=== PATIENT | male | born 1955 | race Caucasian/White ===

== ENCOUNTER 2019-10-14 21:09 | Observation (INO) | payer MEDICARE, BC ==
--- NOTE | 2019-10-14 21:49 | XR ---
EXAMINATION TYPE: XR KUB DATE OF EXAM: 10/14/2019 COMPARISON: NONE HISTORY: Pain TECHNIQUE: One view abdominal series FINDINGS: The osseous structures are intact. The bowel gas pattern is nonspecific. Air-fluid levels are seen. Hypertrophic and degenerative change of the spine. No foreign body that is metallic is identified in the pelvis. Severe arthropathy of the hips. IMPRESSION: 1. Numerous air-fluid levels in a nonspecific pattern correlate for obstruction, ileus or enteritis. 2. No radio metallic foreign body overlying the pelvis. Correlate clinically.
[2019-10-14] MEDS ORDERED: SODIUM CHLORIDE 0.9% 1,000 ML IV STA (22:10)
[2019-10-14 22:16] LABS: Basophils # (A) 0.1 k/uL (0-0.2); Basophils % (A) 0 %; Eosinophils # (A) 0.2 k/uL (0-0.7); Eosinophils % (A) 2 %; HCT 47.8 % (39.0-53.0); HGB 15.7 gm/dL (13.0-17.5); Lymphocytes # (A) 0.8 k/uL (1.0-4.8); Lymphocytes % (A) 6 %; MCH 28.6 pg (25.0-35.0); MCHC 32.9 g/dL (31.0-37.0); Mean Platelet Volume 7.8; Monocytes # (A) 0.6 k/uL (0-1.0); Monocytes % (A) 5 %; Neutrophils # (A) 10.4 k/uL (1.3-7.7); Neutrophils % (A) 86 %; Platelet Count 211 k/uL (150-450); RDW 13.4 % (11.5-15.5); WBC 12.1 k/uL (3.8-10.6)
[2019-10-14 22:25] LABS: ALT 19 U/L (4-49); AST 25 U/L (17-59); African American GFR (CKD) >90 (>60 ml/min/1.73 sqM); Albumin 4.2 g/dL (3.5-5.0); Alkaline Phosphatase 98 U/L (38-126); Anion Gap 9 mmol/L; Blood Urea Nitrogen 17 mg/dL (9-20); Calcium 9.3 mg/dL (8.4-10.2); Carbon Dioxide 27 mmol/L (22-30); Chloride 98 mmol/L (98-107); Glucose 105 mg/dL (74-99); Non-African American GFR(CKD) >90 (>60 ml/min/1.73 sqM); Potassium 3.8 mmol/L (3.5-5.1); Sodium 134 mmol/L (137-145); Total Bilirubin 0.8 mg/dL (0.2-1.3); Total Protein 7.2 g/dL (6.3-8.2)
--- NOTE | 2019-10-14 23:13 | CT ---
EXAMINATION TYPE: CT abdomen pelvis w con DATE OF EXAM: 10/14/2019 COMPARISON: None HISTORY: r/o fb. c/o constipation. CT DLP: 2439 mGycm Automated exposure control for dose reduction was used. CONTRAST: Performed with IV Contrast, patient injected with 100 mL of Isovue 300. Multiple axial sections were obtained from the diaphragm to the floor the pelvis with IV contrast. Very little vascular contrast is seen. Lung bases are clear. There is no pleural effusion. Heart size is normal. There is no pericardial effusion. Stomach is intact. Liver and gallbladder appear normal. There is no pancreatic mass. There is 3 mm calcified multiple granulomas in the spleen. There is no adrenal mass. There is 3 mm calculus posterior right kidney. There is 2 cm cortical cyst interpolar right kidney. There is no hydronephrosis. Ureters are not dilated. There is no retroperito servando adenopathy. Bladder distends smoothly. There is no inguinal hernia. There is no free fluid in the pelvis. There is mild fat stranding around the rectum. There is a spher ical thin wall foreign body at contains air in the rectum. This measures 7.5 cm in diameter. There is some retained fecal material and fluid in the sigmoid colon. There are numerous diverticula in the l eft colon and sigmoid colon. There is no evidence of diverticulitis. There is no mesenteric edema. There is no ascites or free air. There is no evidence of small bowel ob struction. Appendix is not definitely seen. There is no sign of thickened appendix. Lumbar spine is i ntact. Bony pelvis is intact. There are small degenerative cysts in the right acetabulum. There is so me multilevel spinal stenosis due to significant hypertrophic facet arthropathy in the lower lumbar s pine. IMPRESSION: Air-filled spherical foreign body consistent with a rubber ball in the rectum. Sigmoid diverticulosis without diverticulitis. Perirectal mild fat stranding consistent with nonspecific inflammatory process. Nonobstructing small right renal calculus.
[2019-10-15] MEDS ORDERED: HYDROmorphone 0.5 MG/0.5 ML SYRINGE IVP STA (00:05)
[2019-10-15] MEDS ORDERED: MORPHINE SULFATE 4 MG/ML SYRINGE IVP STA (01:10)
[2019-10-15] MEDS ORDERED: DICYCLOMINE 10 MG/ML 2 ML AMP IM STA (01:21)
[2019-10-15] MEDS ORDERED: MORPHINE SULFATE 4 MG/ML SYRINGE IV PRN (01:25)
[2019-10-15] MEDS ORDERED: NALOXONE 0.4 MG/ML 1 ML VIAL IV PRN (01:25)
[2019-10-15] MEDS ORDERED: ONDANSETRON 4 MG/2 ML VIAL IVP PRN (01:25)
--- NOTE | 2019-10-15 01:25 | ED ---
General Adult HPI - General Source: patient, RN notes reviewed Mode of arrival: ambulatory Limitations: no limitations <Anderson Fernandes - Last Filed: 10/15/19 01:16> <Berta Stevenson - Last Filed: 10/16/19 01:24> - General Chief complaint: Abdominal Pain Stated complaint: Constipated Time Seen by Provider: 10/14/19 21:29 - History of Present Illness Initial comments: 64-year-old male presents to the emergency department for a chief complaint of foreign body in rectum. Patient states around 1 or 2 this afternoon he placed a rubber ball in his rectum. Patient states he tried to get it out with his shower hose but was unsuccessful. He states he is having cramping abdominal pain. Denies vomiting.Patient has no other complaints at this time including shortness of breath, chest pain, nausea or vomiting, headache, or visual changes. (Anderson Fernandes) - Related Data Home Medications Medication Instructions Recorded Confirmed No Known Home Medications 10/15/19 10/15/19 Allergies Allergy/AdvReac Type Severity Reaction Status Date / Time No Known Allergies Allergy Verified 10/15/19 08:52 Review of Systems ROS Other: All systems not noted in ROS Statement are negative. <Anderson Fernandes - Last Filed: 10/15/19 01:16> ROS Other: All systems not noted in ROS Statement are negative. <Berta Stevenson - Last Filed: 10/16/19 01:24> ROS Statement: Those systems with pertinent positive or pertinent negative responses have been documented in the HPI. Past Medical History Past Medical History: No Reported History History of Any Multi-Drug Resistant Organisms: None Reported Past Surgical History: Joint Replacement, Orthopedic Surgery Past Psychological History: No Psychological Hx Reported Smoking Status: Former smoker Past Alcohol Use History: Rare Past Drug Use History: None Reported <Anderson Fernandes - Last Filed: 10/15/19 01:16> General Exam Limitations: no limitations General appearance: alert, in no apparent distress Head exam: Present: atraumatic, normocephalic, normal inspection Eye exam: Present: normal appearance, PERRL, EOMI. Absent: scleral icterus, conjunctival injection, periorbital swelling ENT exam: Present: normal exam Neck exam: Present: normal inspection, full ROM. Absent: tenderness, meningismus, lymphadenopathy Respiratory exam: Present: normal lung sounds bilaterally. Absent: respiratory distress, wheezes, rales, rhonchi, stridor Cardiovascular Exam: Present: regular rate, normal rhythm, normal heart sounds. Absent: systolic murmur, diastolic murmur, rubs, gallop, clicks GI/Abdominal exam: Present: soft, tenderness (Generalized lower abdominal tenderness.), normal bowel sounds. Absent: distended, guarding, rebound, rigid Rectal exam: Present: normal inspection, other (Rectal exam with Nadia RENEE present did not reveal a retained foreign body.) <Anderson Fernandes - Last Filed: 10/15/19 01:16> Course Vital Signs 10/14/19 10/15/19 21:10 00:26 Temperature 97.8 F Pulse Rate 129 H 89 Respiratory 20 20 Rate Blood Pressure 131/86 133/75 O2 Sat by Pulse 96 96 Oximetry Medical Decision Making - Lab Data Result diagrams: 10/14/19 22:00 10/14/19 22:00 <Anderson Fernandes - Last Filed: 10/15/19 01:16> - Lab Data Result diagrams: 10/14/19 22:00 10/14/19 22:00 <Berta Stevenson - Last Filed: 10/16/19 01:24> - Medical Decision Making CBC CMP unremarkable. Lactic 1.5. X-ray KUB showed numerous air fluid levels in a nonspecific pattern correlate for obstruction ileus or enteritis. No r adial metallic foreign body. CT abdomen and pelvis with contrast does reveal a 7.5 cm spherical thinwall foreign body that contains air in the rectum there is no evidence of small bowel obstruction. There is perirectal fat stranding consistent with nonspecific inflammatory process. Case was discussed with Dr. Goins who recommended nothing by mouth and she will see him tomorrow. (Anderson Woodward) I was available for consultation in the emergency department. The history and physical exam were done by the midlevel provider. I was consulted for this patients care. I reviewed the case with the midlevel provider and based on their presentation of the patient, I agree with the assessment, medical decision making and plan of care as documented. I discussed the case with Dr. Goins who requested the patient be made NPO for surgery tomorrow. Patient transferred to floor in stable condition. Chart was dictated using [employer] dictation software. Attempts were made to c orrect any dictation errors however some typographical errors may persist. The patient was seen during the [facility] of emergency due to the Covid-19 pandemic. (Berta Stevenson) - Lab Data Lab Results 10/14/19 10/14/19 10/14/19 Range/Units 22:00 22:00 23:20 WBC 12.1 H (3.8-10.6) k/uL RBC 5.50 (4.30-5.90) m/uL Hgb 15.7 (13.0-17.5) gm/dL Hct 47.8 (39.0-53.0) % MCV 87.0 (80.0-100.0) fL MCH 28.6 (25.0-35.0) pg MCHC 32.9 (31.0-37.0) g/dL RDW 13.4 (11.5-15.5) % Plt Count 211 (150-450) k/uL Neutrophils % 86 % Lymphocytes % 6 % Monocytes % 5 % Eosinophils % 2 % Basophils % 0 % Neutrophils # 10.4 H (1.3-7.7) k/uL Lymphocytes # 0.8 L (1.0-4.8) k/uL Monocytes # 0.6 (0-1.0) k/uL Eosinophils # 0.2 (0-0.7) k/uL Basophils # 0.1 (0-0.2) k/uL Sodium 134 L (137-145) mmol/L Potassium 3.8 (3.5-5.1) mmol/L Chloride 98 (98-107) mmol/L Carbon Dioxide 27 (22-30) mmol/L Anion Gap 9 mmol/L BUN 17 (9-20) mg/dL Creatinine 0.60 L (0.66-1.25) mg/dL Est GFR (CKD-EPI)AfAm >90 (>60 ml/min/1.73 sqM) Est GFR (CKD-EPI)NonAf >90 (>60 ml/min/1.73 sqM) Glucose 105 H (74-99) mg/dL Plasma Lactic Acid Kody 1.5 (0.7-2.0) mmol/L Calcium 9.3 (8.4-10.2) mg/dL Total Bilirubin 0.8 (0.2-1.3) mg/dL AST 25 (17-59) U/L ALT 19 (4-49) U/L Alkaline Phosphatase 98 (38-126) U/L Total Protein 7.2 (6.3-8.2) g/dL Albumin 4.2 (3.5-5.0) g/dL Coronavirus (PCR) (Not Detectd) 10/15/19 Range/Units 01:11 WBC (3.8-10.6) k/uL RBC (4.30-5.90) m/uL Hgb (13.0-17.5) gm/dL Hct (39.0-53.0) % MCV (80.0-100.0) fL MCH (25.0-35.0) pg MCHC (31.0-37.0) g/dL RDW (11.5-15.5) % Plt Count (150-450) k/uL Neutrophils % % Lymphocytes % % Monocytes % % Eosinophils % % Basophils % % Neutrophils # (1.3-7.7) k/uL Lymphocytes # (1.0-4.8) k/uL Monocytes # (0-1.0) k/uL Eosinophils # (0-0.7) k/uL Basophils # (0-0.2) k/uL Sodium (137-145) mmol/L Potassium (3.5-5.1) mmol/L Chloride (98-107) mmol/L Carbon Dioxide (22-30) mmol/L Anion Gap mmol/L BUN (9-20) mg/dL Creatinine (0.66-1.25) mg/dL Est GFR (CKD-EPI)AfAm (>60 ml/min/1.73 sqM) Est GFR (CKD-EPI)NonAf (>60 ml/min/1.73 sqM) Glucose (74-99) mg/dL Plasma Lactic Acid Kody (0.7-2.0) mmol/L Calcium (8.4-10.2) mg/dL Total Bilirubin (0.2-1.3) mg/dL AST (17-59) U/L ALT (4-49) U/L Alkaline Phosphatase (38-126) U/L Total Protein (6.3-8.2) g/dL Albumin (3.5-5.0) g/dL Coronavirus (PCR) Not Detected (Not Detectd) Disposition Is patient prescribed a controlled substance at d/c from ED?: No Time of Disposition: 01:25 <Anderson Fernandes - Last Filed: 10/15/19 01:16> <Berta Stevenson - Last Filed: 10/16/19 01:24> Clinical Impression: Foreign body of rectum Disposition: ADMITTED IP TO THIS HOSP Condition: Fair
[2019-10-15] MEDS: SODIUM CHLORIDE 0.9% 1,000 ML IV SCH ×3 (02:07→20:16)
[2019-10-15] MEDS: HYDROmorphone 0.5 MG/0.5 ML SYRINGE IVP PRN ×2 (03:06→07:11)
--- NOTE | 2019-10-15 09:37 | P.GSHP ---
History of Present Illness H&P Date: 10/15/19 Chief Complaint: Foreign body The patient's a 64-year-old man with complaints of a foreign body in his rectum that he can't expel. He placed about 1 or 2 yesterday afternoon. It was then unable to be retrieved. He is complaining of some crampy abdominal pain no nausea or vomiting. No chest pain or shortness of breath. No rectal bleeding. - Review of Systems All systems: negative Past Medical History Past Medical History: Hypertension, Pneumonia, Prostate Disorder History of Any Multi-Drug Resistant Organisms: None Reported Past Surgical History: Joint Replacement, Orthopedic Surgery Additional Past Surgical History / Comment(s): bilateral knees, shoulder surgery Smoking Status: Former smoker Medications and Allergies Home Medications Medication Instructions Recorded Confirmed Type No Known Home Medications 10/15/19 10/15/19 History Allergies Allergy/AdvReac Type Severity Reaction Status Date / Time No Known Allergies Allergy Verified 10/15/19 08:52 Surgical - Exam Osteopathic Statement: *. No significant issues noted on an osteopathic structural exam other than those noted in the History and Physical/Consult. Vital Signs Temp Pulse Resp BP Pulse Ox 97.8 F 129 H 20 131/86 96 10/14/19 21:10 10/14/19 21:10 10/14/19 21:10 10/14/19 21:10 10/14/19 21:10 - General well developed, well nourished, no distress - Neck trachea midline - Respiratory normal respiratory effort - Cardiovascular Rhythm: regular - Abdomen Abdomen: soft - Psychiatric oriented to time, oriented to person, oriented to place, speech is normal, memory intact Results - Labs 10/14/19 22:00 10/14/19 22:00 Abnormal Lab Results - Last 24 Hours (Table) 10/14/19 10/14/19 Range/Units 22:00 22:00 WBC 12.1 H (3.8-10.6) k/uL Neutrophils # 10.4 H (1.3-7.7) k/uL Lymphocytes # 0.8 L (1.0-4.8) k/uL Sodium 134 L (137-145) mmol/L Creatinine 0.60 L (0.66-1.25) mg/dL Glucose 105 H (74-99) mg/dL Diabetes panel 10/14/19 Range/Units 22:00 Sodium 134 L (137-145) mmol/L Potassium 3.8 (3.5-5.1) mmol/L Chloride 98 (98-107) mmol/L Carbon Dioxide 27 (22-30) mmol/L BUN 17 (9-20) mg/dL Creatinine 0.60 L (0.66-1.25) mg/dL Glucose 105 H (74-99) mg/dL Calcium 9.3 (8.4-10.2) mg/dL AST 25 (17-59) U/L ALT 19 (4-49) U/L Alkaline Phosphatase 98 (38-126) U/L Total Protein 7.2 (6.3-8.2) g/dL Albumin 4.2 (3.5-5.0) g/dL Calcium panel 10/14/19 Range/Units 22:00 Calcium 9.3 (8.4-10.2) mg/dL Albumin 4.2 (3.5-5.0) g/dL Pituitary panel 10/14/19 Range/Units 22:00 Sodium 134 L (137-145) mmol/L Potassium 3.8 (3.5-5.1) mmol/L Chloride 98 (98-107) mmol/L Carbon Dioxide 27 (22-30) mmol/L BUN 17 (9-20) mg/dL Creatinine 0.60 L (0.66-1.25) mg/dL Glucose 105 H (74-99) mg/dL Calcium 9.3 (8.4-10.2) mg/dL Adrenal panel 10/14/19 Range/Units 22:00 Sodium 134 L (137-145) mmol/L Potassium 3.8 (3.5-5.1) mmol/L Chloride 98 (98-107) mmol/L Carbon Dioxide 27 (22-30) mmol/L BUN 17 (9-20) mg/dL Creatinine 0.60 L (0.66-1.25) mg/dL Glucose 105 H (74-99) mg/dL Calcium 9.3 (8.4-10.2) mg/dL Total Bilirubin 0.8 (0.2-1.3) mg/dL AST 25 (17-59) U/L ALT 19 (4-49) U/L Alkaline Phosphatase 98 (38-126) U/L Total Protein 7.2 (6.3-8.2) g/dL Albumin 4.2 (3.5-5.0) g/dL - Imaging CT scan - abdomen: report reviewed, image reviewed Assessment and Plan (1) Foreign body of rectum Current Visit: Yes Status: Acute Code(s): T18.5XXA - FOREIGN BODY IN ANUS AND RECTUM, INITIAL ENCOUNTER SNOMED Code(s): 64717295 Plan: The patient will be taken to the OR for removal of the foreign body. More than likely this can be done transanally. There is a slight chance he may need a laparotomy. Slight chance of injury to the bowel wall which would require repair in a possible prolonged hospital stay. The procedure risks and complications were discussed. Questions were encouraged and answered.
[2019-10-15] MEDS ORDERED: MINERAL OIL 1 APPLIC/ML OIL MISCELLANE ONE ×2 (11:07→11:20)
[2019-10-15] MEDS ORDERED: PROPOFOL 10 MG/ML 20 ML VIAL IV ONE (11:09)
[2019-10-15] MEDS ORDERED: ONDANSETRON 4 MG/2 ML VIAL ONE (11:09)
[2019-10-15] MEDS ORDERED: MIDAZOLAM 2 MG/2 ML VIAL ONE (11:09)
[2019-10-15] MEDS ORDERED: DEXAMETHASONE SOD PHOS (MDV) 100 MG/10 ML VIAL ONE (11:09)
[2019-10-15] MEDS ORDERED: fentaNYL (PF) 50 MCG/ML 2 ML AMP ONE (11:09)
[2019-10-15] MEDS ORDERED: SUCCINYLCHOLINE CHLORIDE 100 MG/5 ML SYR IV ONE (11:09)
[2019-10-15] MEDS ORDERED: GLUCAGON 1 MG/ML VIAL ONE (11:09)
[2019-10-15] MEDS ORDERED: LIDOCAINE 1% INJ 10MG/ML (20 ML MDV) ONE (11:09)
[2019-10-15] MEDS ORDERED: IV FLUID CONTINUATION 900 ML IV ONE (11:09)
--- NOTE | 2019-10-15 13:32 | P.OP ---
Date of Procedure: 10/15/19 Preoperative Diagnosis: Rectal foreign body Postoperative Diagnosis: Sigmoid foreign body Procedure(s) Performed: exam under anesthesia, rigid sigmoidoscopy with removal of foreign body, diagnostic flexible sigmoidoscopy Anesthesia: DEA Surgeon: Demetria Goins Pathology: other (Fragmented portion of a Toy ball for gross pathology) Condition: stable Disposition: PACU Indications for Procedure: The patient presented with a retained rectal foreign body Description of Procedure: The patient is taken to the operative suite where [facility] a general endotracheal anesthetic. a digital rectal exam is carried out with no foreign body palpated. A Kimball catheter was inserted the full distance in the 30 mL balloon was inflated and this was removed several times. No foreign body was encountered. A rigid sigmoidoscope was then inserted and a foreign body is identified at about 20 cm. It has a green and ink coloration to the external portion. Attempt was made to thread the catheter along side of the foreign body and it would not pass easily. Attempts were made with various instruments to grasp the foreign body and remove it. Could not get good purchase. Laparoscopic instruments were then used to remove the foreign body in a piecemeal pattern. There was a rubberized surface with internal sponge component to it. After about 2 hours was able to finally grasp a portion and remove the remainder of the bowel intact. There was writing which appeared to show "Sana" en bloc letter. Flexible sigmoidoscope was then inserted and passed to about 30 cm. There was some spasm and erythema where the bowel had been sitting. No significant ulceration. Small fragments of foam were still present. These are only 5-7 mm in size and should pass easily with a bowel movement. The scope was withdrawn. He was taken recovery room in satisfactory condition.
[2019-10-15] MEDS ORDERED: KETOROLAC 30 MG/ML 1 ML VIAL IVP ONE (13:51)
[2019-10-15] MEDS ORDERED: HYDROmorphone 0.5 MG/0.5 ML SYRINGE IVP ONE (13:51)
[2019-10-16] MEDS: SODIUM CHLORIDE 0.9% 1,000 ML IV SCH (06:23)
[2019-10-16 07:04] VITALS: BP 121/64; PULSE 84; TEMP 98.2
[2019-10-16 10:12] VITALS: RESP 17
== END 2019-10-16 10:15 | disposition home or self-care (01) ==
LOC: EC 21:09 → 5NMEDONC 10-15 01:16
PROVIDERS: ADMIT Surgery; ATTEND Surgery
DX: T18.5XXA Foreign body in anus and rectum, initial encounter (principal); I10 Essential (primary) hypertension; N42.9 Disorder of prostate, unspecified; Z87.01 Personal history of pneumonia (recurrent); Z87.891 Personal history of nicotine dependence; Z96.653 Presence of artificial knee joint, bilateral; Z03.818 Encounter for observation for suspected exposure to other biological agents ruled out
CPT/HCPCS: 45332; 96361 ×3; 96376; 96372; 96374; 96375; 99285; 36415; 80053; 83605; 85025; 88300; 87635; 74018; 74177; G0378 ×2; J2270; J0500; J1885; J1170; Q9967

== ENCOUNTER → 2020-04-26 | Outpatient (CLI) | payer MEDICARE, BC ==
--- NOTE | 2020-04-26 14:27 | NM ---
EXAMINATION TYPE: NM bone 3 phase DATE OF EXAM: 04/26/2020 COMPARISON: NONE HISTORY: Left knee pain Triple phase bone scintigraphy was performed following the injection of 23.1 mCi Tc 99m MDP. Immedia te images and 5.25 hours post injection images acquired. FINDINGS: Blood flow and blood pool activity symmetric. Photopenic areas of the knees are consistent with prior joint replacement. There is mild uptake along the tibial components bilaterally left greater than ri ght in delayed images. IMPRESSION: Findings may represent stress changes, consider prosthetic loosening on the basis of this exam.
== END | disposition home or self-care (01) ==
LOC: RADNMMAIN 07:05
PROVIDERS: ATTEND Orthopaedic Surgery Adult Reconstructive Orthopaedic Surgery
DX: Z96.652 Presence of left artificial knee joint (principal)
CPT/HCPCS: 78315; A9503